=== PATIENT | female | born 1975 | race Caucasian/White ===

== ENCOUNTER 2016-09-18 12:25 | Emergency (ER) | payer OTHER ==
[~2016-09-18] VITALS: Ht 162.6 cm; Wt 54.8 kg
[2016-09-18 12:29] VITALS: BP 142/95; PULSE 88; RESP 16; TEMP 98.3; O2SAT 100
[2016-09-18] MEDS ORDERED: CABE0.5T PO (12:40)
[2016-09-18] MEDS ORDERED: MECLIZINE HCL 25 MG TAB PO ONE (13:00)
--- NOTE | 2016-09-18 13:00 | PD ---
HPI Chief Complaint: Dizziness Time Seen by Provider: 12:55 Travel History International Travel<30 days: No Contact w/Intl Traveler<30days: No Traveled to known affect area: No History of Present Illness HPI Patient presents with complaints of significant dizziness which occurs intermittently. Denies any aggravating factors. It is not worse with head movement or getting up from a laying position. Denies . Denies nausea vomiting diarrhea or fever. Denies any new rashes. Denies any recent illness. Denies any allergies. Denies headache. Reports good fluid intake. No alleviating factors. PFSH Past Medical History Cancer: No Cardiovascular Problems: No Diabetes: No Endocrine: No Genitourinary: No Hepatitis: No Hiatal Hernia: No Immune Disorder: No Medical other: Yes (hx of High PROLACTIN LEVEL) Musculoskeletal: No Neurologic: No Psychiatric: No Respiratory: No Thyroid Disease: No Tetanus Vaccination: > 5 Years Influenza Vaccination: No ?: Not LMP: 09/30/16 Past Surgical History AICD: No Section: Yes (x1) Genitourinary Surgery: Yes (STENT AND KIDNEY STONE REMOVAL) Gynecologic Surgery: Yes (OVARIAN CYST REMOVED, UTERIN POLUP REMOVED) Joint Replacement: No Pacemaker: No Social History Alcohol Use: No Tobacco Use: No Substance Use: No Allergies-Medications (Allergen,Severity, Reaction): Coded Allergies: No Known Allergies (Unverified , 09/18/16) Reported Meds & Prescriptions Reported Meds & Active Scripts Active Reported Cabergoline Unknown Strength Tab Unknown Dose PO 2XWEEK Review of Systems General / Constitutional: No: Fever Eyes: No: Visual changes HENT: Positive: Vertigo, No: Headaches Cardiovascular: No: Chest Pain or Discomfort Respiratory: No: Shortness of Breath Gastrointestinal: No: Abdominal Pain Genitourinary: No: Dysuria Musculoskeletal: No: Pain Skin: No Rash Neurologic: No: Weakness Psychiatric: No: Depression Endocrine: No: Polydipsia Hematologic/Lymphatic: No: Easy Bruising Physical Exam Narrative GENERAL: Well-nourished, well-developed patient. SKIN: Focused skin assessment warm/dry. HEAD: Normocephalic. EYES: No scleral icterus. No injection or drainage. NECK: Supple, trachea midline. No JVD or lymphadenopathy. CARDIOVASCULAR: Regular rate and rhythm without murmurs, gallops, or rubs. RESPIRATORY: Breath sounds equal bilaterally. No accessory muscle use. GASTROINTESTINAL: Abdomen soft, non-tender, nondistended. MUSCULOSKELETAL: No cyanosis, or edema. BACK: Nontender without obvious deformity. No CVA tenderness. Data Data Last Documented VS Vital Signs Date Time Temp Pulse Resp B/P Pulse Ox O2 Delivery O2 Flow Rate FiO2 09/18/16 12:37 86 16 100 Room Air 09/18/16 12:29 98.3 142/95 Orders Electrocardiogram (09/18/16 12:55) Basic Metabolic Panel (Bmp) (09/18/16 12:55) Complete Blood Count With Diff (09/18/16 12:55) Comprehensive Metabolic Panel (09/18/16 12:55) Urinalysis - C+S If Indicated (09/18/16 12:55) Meclizine (Antivert) (09/18/16 13:00) Labs Laboratory Tests Test 09/18/16 09/18/16 13:10 14:18 White Blood Count 7.8 TH/MM3 Red Blood Count 4.58 MIL/MM3 Hemoglobin 12.1 GM/DL Hematocrit 37.6 % Mean Corpuscular Volume 82.1 FL Mean Corpuscular Hemoglobin 26.3 PG Mean Corpuscular Hemoglobin 32.1 % Concent Red Cell Distribution Width 15.9 % Platelet Count 197 TH/MM3 Mean Platelet Volume 9.9 FL Neutrophils (%) (Auto) 68.4 % Lymphocytes (%) (Auto) 21.9 % Monocytes (%) (Auto) 4.7 % Eosinophils (%) (Auto) 0.2 % Basophils (%) (Auto) 4.8 % Neutrophils # (Auto) 5.3 TH/MM3 Lymphocytes # (Auto) 1.7 TH/MM3 Monocytes # (Auto) 0.4 TH/MM3 Eosinophils # (Auto) 0.0 TH/MM3 Basophils # (Auto) 0.4 TH/MM3 CBC Comment DIFF FINAL Differential Comment Sodium Level 142 MEQ/L Potassium Level 4.2 MEQ/L Chloride Level 108 MEQ/L Carbon Dioxide Level 26.3 MEQ/L Anion Gap 8 MEQ/L Blood Urea Nitrogen 13 MG/DL Creatinine 0.82 MG/DL Estimat Glomerular Filtration 78 ML/MIN Rate Random Glucose 90 MG/DL Calcium Level 8.8 MG/DL Total Bilirubin 0.8 MG/DL Aspartate Amino Transf 13 U/L (AST/SGOT) Alanine Aminotransferase 12 U/L (ALT/SGPT) Alkaline Phosphatase 45 U/L Total Protein 7.6 GM/DL Albumin 4.1 GM/DL Urine Collection Type CLEAN CATCH Urine Color YELLOW Urine Turbidity CLEAR Urine pH 6.5 Urine Specific [place] 1.017 Urine Protein NEG mg/dL Urine Glucose (UA) NEG mg/dL Urine Ketones 40 mg/dL Urine Occult Blood NEG Urine Nitrite NEG Urine Bilirubin NEG Urine Leukocyte Esterase NEG Urine WBC 0-2 /hpf Urine Squamous Epithelial > 8 /hpf Cells Urine Mucus FEW /lpf Microscopic Urinalysis Comment CULT NOT INDICATED Urine Collection Time 14:18 [facility] Medical Decision Making Medical Screen Exam Complete: Yes Emergency Medical Condition: Yes Differential Diagnosis Vertigo, low blood sugar, allergies, heat intolerance Narrative Course Assessment and plan discussed with patient and at bedside, EKG reveals sinus rhythm rate of 74. Symptoms did improve with meclizine. Diagnosis Primary Impression: Vertigo Patient Instructions: General Instructions Additional Instructions: Encourage rest and fluids. Encouraged follow-up with PCP in one to 2 weeks. Encouraged to return to emergency room with any change in symptoms Med/Other Pt SpecificInfo: Prescription(s) given Scripts Meclizine 25 Mg Tab25 Mg PO TID PRN (VERTIGO) #30 TAB Ref 0 Prov:Michael Stringre MD 09/18/16 Disposition: 01 DISCHARGE HOME Condition: Good Michael Stringer MD Sep 18, 2016 13:00
[2016-09-18 13:19] LABS: AUTOMATED NEUTROPHIL # 5.3 TH/MM3 (1.8-7.7); BASOPHIL # 0.4 TH/MM3 (0-0.2); BASOPHIL % 4.8 % (0.0-2.0); EOSINOPHIL % 0.2 % (0.0-4.0); HEMATOCRIT 37.6 % (35.0-46.0); HEMO FLAGS DIFF FINAL; LYMPH % 21.9 % (9.0-44.0); LYMPHOCYTE # 1.7 TH/MM3 (1.0-4.8); MEAN CELL VOLUME 82.1 FL (80.0-100.0); MEAN CORPUSCULAR HEMOGLOBIN 26.3 PG (27.0-34.0); MEAN CORPUSCULAR HGB CONC 32.1 % (32.0-36.0); MONO % 4.7 % (0.0-8.0); NEUT % 68.4 % (16.0-70.0); PLATELET COUNT 197 TH/MM3 (150-450); RED BLOOD COUNT 4.58 MIL/MM3 (4.00-5.30); RED CELL DISTRIBUTION WIDTH 15.9 % (11.6-17.2); WHITE BLOOD COUNT 7.8 TH/MM3 (4.0-11.0)
[2016-09-18 13:26] LABS: CHLORIDE 108 MEQ/L (98-107); POTASSIUM 4.2 MEQ/L (3.5-5.1); SODIUM (NA) 142 MEQ/L (136-145)
[2016-09-18 13:30] LABS: ANION GAP 8 MEQ/L (5-15); BICARBONATE 26.3 MEQ/L (21.0-32.0); BLOOD UREA NITROGEN 13 MG/DL (7-18)
[2016-09-18 13:33] LABS: ALT (GPT) 12 U/L (10-53); AST (GOT) 13 U/L (15-37); GLOMERULAR FILTRATION RATE 78 ML/MIN (>89)
[2016-09-18 13:34] LABS: TOTAL BILIRUBIN ADULT 0.8 MG/DL (0.2-1.0)
[2016-09-18 13:36] LABS: ALKALINE PHOSPHATASE 45 U/L (45-117)
[2016-09-18 14:36] LABS: BLOOD, URINE NEG (NEG); GLUCOSE,URINE NEG (NEG); KETONE, URINE 40 mg/dL (NEG); NITRITE,URINE NEG (NEG); PH, URINE 6.5 (5.0-8.5)
[2016-09-18 14:41] LABS: METHOD OF COLLECTION CLEAN CATCH
[2016-09-18 14:42] LABS: COMMENT (UR) CULT NOT INDICATED; CULTURE IF INDICATED CULT NOT INDICATED; MUCUS URINE FEW /lpf (OCC); SQUAMOUS EPITHELIAL CELL URINE > 8 /hpf (0-5); URINE COLOR YELLOW (YELLW/STRAW); WBC, URINE 0-2 /hpf (0-5)
[2016-09-18] MEDS ORDERED: MECL-62 PO (14:54)
[2016-09-18 15:00] VITALS: BP 118/61; PULSE 61; RESP 16; O2SAT 100
--- NOTE | 2016-09-18 15:03 | EKG ---
Date Performed: 09/18/2016 Time Performed: 13:08:27 PTAGE: 41 years EKG: Sinus rhythm Significant baseline artifact complicating interpretation, consider repeating ABNORMAL ECG NO PREVIOUS TRACING DOCTOR: Wilbur Trejo Interpretating Date/Time 09/18/2016 15:02:28
== END 2016-09-18 15:15 | disposition home or self-care (01) ==
LOC: PHED 12:25
DX: R42 Dizziness and giddiness (principal)
CPT/HCPCS: 80053; 81001; 85025; 93005; 99284

== ENCOUNTER 2017-07-16 06:14 | Emergency (ER) | payer OTHER ==
[~2017-07-16] VITALS: Ht 165.1 cm; Wt 58.0 kg
[~2017-07-16 06:14] MED LIST: CABE0.5T PO; MECL-62 PO
[2017-07-16 06:16] VITALS: BP 138/74; PULSE 81; RESP 17; TEMP 98; O2SAT 100
[2017-07-16] MEDS ORDERED: PROG100C PO (06:37)
[2017-07-16 06:45] LABS: AUTOMATED NEUTROPHIL # 8.2 TH/MM3 (1.8-7.7); BASOPHIL % 0.3 % (0.0-2.0); EOSINOPHIL # 0.1 TH/MM3 (0-0.4); EOSINOPHIL % 0.5 % (0.0-4.0); HEMATOCRIT 35.3 % (35.0-46.0); HEMOGLOBIN 11.4 GM/DL (11.6-15.3); LYMPHOCYTE # 2.2 TH/MM3 (1.0-4.8); MEAN CELL VOLUME 78.4 FL (80.0-100.0); MEAN CORPUSCULAR HEMOGLOBIN 25.3 PG (27.0-34.0); MEAN CORPUSCULAR HGB CONC 32.3 % (32.0-36.0); MEAN PLATELET VOLUME 9.4 FL (7.0-11.0); MONO % 4.6 % (0.0-8.0); MONOCYTE # 0.5 TH/MM3 (0-0.9); NEUT % 74.6 % (16.0-70.0); PLATELET COUNT 181 TH/MM3 (150-450); RED CELL DISTRIBUTION WIDTH 16.9 % (11.6-17.2)
--- NOTE | 2017-07-16 06:54 | PD ---
HPI Chief Complaint: Related Problem Time Seen by Provider: 06:22 Travel History International Travel<30 days: No Contact w/Intl Traveler<30days: No Traveled to known affect area: No History of Present Illness HPI Is a 42-year-old woman presents to the emergency department complaining of and bleeding. Last menstrual period was May 28, she is approximately 7 weeks . She is 4 para 1, 0, 2, 0 with 2 previous miscarriages. She had a hCG was found that she was several days ago that apparently was 1600. She then had a repeat blood test it went down a little bit, then another one that went up a little bit. Because of this she had an ultrasound with Dr. Teague, her OB doctor, there showed an intrauterine with reportedly heart activity. She been doing well until late this evening/early this morning she developed vaginal bleeding. She describes fairly heavy vaginal bleeding. Minimal cramping. She otherwise has been feeling generally well and healthy. No other complaints. History Past Medical History Medical History: Denies Significant Hx Tetanus Vaccination: Unknown Influenza Vaccination: No : 4 Para: 1 Dilation and Curettage (D&C): Yes Social History Alcohol Use: No Tobacco Use: No Allergies-Medications (Allergen,Severity, Reaction): Coded Allergies: No Known Allergies (Unverified Adverse Reaction, Unknown, 07/16/17) Reported Meds & Prescriptions Reported Meds & Active Scripts Active Meclizine (Meclizine HCl) 25 Mg Tab 25 Mg PO TID PRN Reported Progesterone Micronized 100 Mg Cap 200 Mg PO BID Cabergoline Unknown Strength Tab Unknown Dose PO 2XWEEK Review of Systems Except as stated in HPI: all other systems reviewed are Neg Physical Exam Narrative GENERAL: Well-appearing 42-year-old man, no acute distress. SKIN: Focused skin assessment warm/dry. HEAD: Atraumatic. Normocephalic. CARDIOVASCULAR: Regular rate and rhythm. No murmur appreciated. RESPIRATORY: No accessory muscle use. Clear to auscultation. Breath sounds equal bilaterally. GASTROINTESTINAL: Abdomen soft, non-tender, nondistended. Hepatic and splenic margins not palpable. MUSCULOSKELETAL: No obvious deformities. No edema. NEUROLOGICAL: Awake and alert. No obvious cranial nerve deficits. Motor grossly within normal limits. Normal speech. PSYCHIATRIC: Appropriate mood and affect; insight and judgment normal. : Normal external female genitalia. A moderate amount of thin red blood in the vaginal vault. Cervix is difficult to completely visualize. No obvious tumor masses or irregularities. On bimanual exam, cervix is closed. There is no palpable uterine enlargement or adnexal tenderness. Data Data Last Documented VS Vital Signs Date Time Temp Pulse Resp B/P (MAP) Pulse Ox O2 Delivery O2 Flow Rate FiO2 07/16/17 06:16 98.0 81 17 138/74 (95) 100 Orders Orders Beta Hcg (Quant/Titer) (07/16/17 06:23) Complete Blood Count With Diff (07/16/17 06:23) Comprehensive Metabolic Panel (07/16/17 06:23) Gc And Chlamydia Pcr (07/16/17 06:23) Us Pelvis (Ques Preg/Ectopic) (07/16/17 ) Wet Prep Profile (07/16/17 06:23) Ua Includes Microscopic (07/16/17 06:23) Labs Laboratory Tests Test 07/16/17 06:39 MDM Medical Decision Making Medical Screen Exam Complete: Yes Emergency Medical Condition: Yes Differential Diagnosis Threatened AB, intrauterine , blighted ovum, molar , action, other Narrative Course Medical decision making Is a 42-year-old woman presents to the emergency department, , bleeding , concern for miscarriage. She looks well. Exam shows a moderate amount of thin red blood. She is Rh+. Will check labs, repeat ultrasound, repeat hCG. Malik Cornell MD July 16, 2017 06:54
[2017-07-16 07:04] LABS: ALBUMIN 3.7 GM/DL (3.4-5.0); ALT (GPT) 11 U/L (10-53); AST (GOT) 11 U/L (15-37); BICARBONATE 24.2 MEQ/L (21.0-32.0); BLOOD UREA NITROGEN 15 MG/DL (7-18); CALCIUM 8.2 MG/DL (8.5-10.1); CHLORIDE 111 MEQ/L (98-107); GLOMERULAR FILTRATION RATE 79 ML/MIN (>89); GLUCOSE,RANDOM 110 MG/DL (74-106); SODIUM (NA) 143 MEQ/L (136-145)
[2017-07-16 07:08] LABS: ALKALINE PHOSPHATASE 41 U/L (45-117); TOTAL BILIRUBIN ADULT 0.4 MG/DL (0.2-1.0); TOTAL PROTEIN 7.1 GM/DL (6.4-8.2)
[2017-07-16 08:36] LABS: BILIRUBIN, URINE NEG (NEG); BLOOD, URINE LARGE (NEG); GLUCOSE,URINE NEG (NEG); KETONE, URINE NEG (NEG); NITRITE,URINE NEG (NEG); URINE COLOR Pink (YELLW/STRAW); URINE LEUKOCYTE ESTERASE TRACE (NEG)
[2017-07-16 08:44] LABS: BACTERIA, URINE OCC /hpf; MUCUS URINE FEW /lpf (OCC); SQUAMOUS EPITHELIAL CELL URINE 4 /hpf (0-5)
[2017-07-16] MEDS ORDERED: ACETAMINOPHEN 325 MG TAB PO ONE (08:45)
--- NOTE | 2017-07-16 09:07 | RADRPT ---
EXAM DATE/TIME: 07/16/2017 07:56 [facility] COMPARISON: No previous studies available for comparison. INDICATIONS : Vaginal bleeding x 1 day. LAB(S): Beta-hC MEDICAL HISTORY : . Renal calculi. SURGICAL HISTORY : section. Ovarian cyst and uterine polyp removal. Dilation and Curettage. ENCOUNTER: Initial ACUITY: 1 day PAIN SCORE: 0/10 LOCATION: Bilateral pelvis MEASUREMENTS: UTERUS: 7.7 x 5.6 x 4.6 cm ENDOMETRIAL STRIPE: 11 mm RIGHT OVARY: 6.1 x 3.3 x 4.5 cm LEFT OVARY: 2.5 x 2.5 x1.3 cm cm FREE FLUID: No CROWN RUMP LENGTH: 0.46 cm = 6 WKS 1 DAYS FHR: Not visualized FINDINGS: UTERUS: Relatively homogeneous with a hypoechoic lesion in the anterior lower uterine segment measuring appro ximately 11 x 10 x 7 mm. Features suggest an intramural leiomyoma. In the lower endometrial cavity ne ar the cervical eyes there is a cystic structure which appears to represent a gestational sac since a yolk sac is present. No heart rate could be identified with M-mode Doppler. RIGHT OVARY: Right ovary has an abnormal appearance containing an irregular hypoechoic lesion measuring 5.3 x 3.2 x 4.5 cm. It demonstrates no increased blood flow. LEFT OVARY: Ovary contains no mass or significant cystic lesion. MISCELLANEOUS: No free fluid. CONCLUSION: 1. Transabdominal pelvis imaging was performed only. Additional detail may be obtained with transvagi nal imaging, if needed. The current examination demonstrates a gestational sac in the very low endome trial cavity near the cervical os. A yolk sac and embryo are identified but no heart rate could be documented. Given the bleeding and abnormal position of the gestational sac as well as reported d ecreasing beta-hCG values, this may represent in progress. Suggest followup of beta hCG valu es and ultrasound imaging, as needed. 2. Complex right ovarian lesion measuring up to 5.3 cm most likely represents a hemorrhagic cyst. Sug gest followup ultrasound to confirm resolution. Brandon Rangel MD on July 16, 2017 at 8:59 Board Certified Radiologist. This report was verified electronically.
[2017-07-16] MEDS ORDERED: NORC5TAB PO (09:32)
--- NOTE | 2017-07-16 09:32 | PD ---
Physical Exam Narrative General: No apparent distress, well appearing ENT: mmm Neck: Neck is supple, no meningeal signs, trachea is midline Cardiovascular: Regular rate and rhythm Lungs: No increased respiratory effort noted Extremities: No edema Neuro: Awake, motor and sensation grossly intact, normal speech Psych: Appropriate mood and affect Data Data Last Documented VS Vital Signs Date Time Temp Pulse Resp B/P (MAP) Pulse Ox O2 Delivery O2 Flow Rate FiO2 07/16/17 06:16 98.0 81 17 138/74 (95) 100 Orders Orders Beta Hcg (Quant/Titer) (07/16/17 06:23) Complete Blood Count With Diff (07/16/17 06:23) Comprehensive Metabolic Panel (07/16/17 06:23) Us Pelvis (Ques Preg/Ectopic) (07/16/17 ) Ua Includes Microscopic (07/16/17 06:23) Acetaminophen (Tylenol) (07/16/17 08:45) Ed Discharge Order (07/16/17 09:27) Labs Laboratory Tests Test 07/16/17 06:39 07/16/17 08:04 White Blood Count 11.0 TH/MM3 Red Blood Count 4.50 MIL/MM3 Hemoglobin 11.4 GM/DL Hematocrit 35.3 % Mean Corpuscular Volume 78.4 FL Mean Corpuscular Hemoglobin 25.3 PG Mean Corpuscular Hemoglobin Concent 32.3 % Red Cell Distribution Width 16.9 % Platelet Count 181 TH/MM3 Mean Platelet Volume 9.4 FL Neutrophils (%) (Auto) 74.6 % Lymphocytes (%) (Auto) 20.0 % Monocytes (%) (Auto) 4.6 % Eosinophils (%) (Auto) 0.5 % Basophils (%) (Auto) 0.3 % Neutrophils # (Auto) 8.2 TH/MM3 Lymphocytes # (Auto) 2.2 TH/MM3 Monocytes # (Auto) 0.5 TH/MM3 Eosinophils # (Auto) 0.1 TH/MM3 Basophils # (Auto) 0.0 TH/MM3 CBC Comment DIFF FINAL Differential Comment Blood Urea Nitrogen 15 MG/DL Creatinine 0.80 MG/DL Random Glucose 110 MG/DL Total Protein 7.1 GM/DL Albumin 3.7 GM/DL Calcium Level 8.2 MG/DL Alkaline Phosphatase 41 U/L Aspartate Amino Transf (AST/SGOT) 11 U/L Alanine Aminotransferase (ALT/SGPT) 11 U/L Total Bilirubin 0.4 MG/DL Sodium Level 143 MEQ/L Potassium Level 3.8 MEQ/L Chloride Level 111 MEQ/L Carbon Dioxide Level 24.2 MEQ/L Anion Gap 8 MEQ/L Estimat Glomerular Filtration Rate 79 ML/MIN Human Chorionic Gonadotropin, Quant 866 MIU/ML Urine Color [place] Urine Turbidity HAZY Urine pH 7.0 Urine Specific [place] 1.015 Urine Protein TRACE mg/dL Urine Glucose (UA) NEG mg/dL Urine Ketones NEG mg/dL Urine Occult Blood LARGE Urine Nitrite NEG Urine Bilirubin NEG Urine Urobilinogen 0.2 MG/DL Urine Leukocyte Esterase TRACE Urine RBC /hpf Urine WBC 1 /hpf Urine Squamous Epithelial Cells 4 /hpf Urine Bacteria OCC /hpf Urine Mucus FEW /lpf MDM Supervised Visit with MALIA: No Interpretation(s) Last 24 hours Impressions Pelvis Ultrasound 07/16/17 0000 Signed Impressions: Service Date/Time: Sunday, July 16, 2017 07:56 - CONCLUSION: 1. Transabdominal pelvis imaging was performed only. Additional detail may be obtained with transvaginal imaging, if needed. The current examination demonstrates a gestational sac in the very low endometrial cavity near the cervical os. A yolk sac and embryo are identified but no heart rate could be documented. Given the bleeding and abnormal position of the gestational sac as well as reported decreasing beta-hCG values, this may represent in progress. Suggest followup of beta hCG values and ultrasound imaging, as needed. 2. Complex right ovarian lesion measuring up to 5.3 cm most likely represents a hemorrhagic cyst. Suggest followup ultrasound to confirm resolution. Brandon Rangel MD Narrative Course Signed over to me to follow blood work and ultrasound. Quant is decreased significantly from prior of 1600 and ultrasound shows no heart tones with sac moving near office. She is likely going through a miscarriage. Patient was updated. She is requesting pain medication and she has increasing pain or bleeding and I will provide her with this. She agrees to close follow-up and was given return instructions. Diagnosis Primary Impression: Abdominal pain affecting Patient Instructions: General Instructions Additional Instruction: return as needed, only start taking [place] when you start having worsening symptoms of a miscarriage as discussed, follow with your dr kidd Med/Other Pt SpecificInfo: Prescription(s) given Scripts Hydrocodone-Acetaminophen ([place]) 5 Mg-325 Mg Tab 1 TAB PO Q6H Y for PAIN, #5 TAB 0 Refills Prov: Tasha Barber MD 07/16/17 Disposition: 01 DISCHARGE HOME Condition: Stable Tasha Barber MD July 16, 2017 09:32
== END 2017-07-16 09:58 | disposition home or self-care (01) ==
LOC: NEPE 06:14
DX: O26.891 Other specified pregnancy related conditions, first trimester (principal); R10.9 Unspecified abdominal pain; Z3A.01 Less than 8 weeks gestation of pregnancy; Z34.91 Encounter for supervision of normal pregnancy, unspecified, first trimester
CPT/HCPCS: 76700; 80053; 81001; 84702; 85025